=== PATIENT | male | born 1965 | race American Indian/Alaskan Native ===

== ENCOUNTER 2017-09-28 07:52 | Emergency (ER) | payer SELFPAY ==
--- NOTE | 2017-09-28 09:08 | XRay Report ---
ROUTINE CHEST, TWO VIEWS: HISTORY: Chest pain. The trachea, heart, mediastinal contour, lung roberts and bony thorax are unremarkable. IMPRESSION: No acute cardiopulmonary process identified.
[2017-09-28 09:16] LABS: Basophils % (Auto) 0.4 % (0.0-1.8); Eosinophils % (Auto) 0.1 % (0.0-4.3); Hematocrit 50.1 % (35.5-45.6); Hemoglobin 17.1 gm/dl (11.8-15.2); Lymphocytes # (Auto) 0.8 K/mm3 (1.2-5.4); Lymphocytes % (Auto) 17.5 % (13.4-35.0); Mean Corpuscular HGB Conc 34 % (32-34); Mean Corpuscular Hemoglobin 30 pg (28-32); Mean Corpuscular Volume 88 fl (84-94); Monocytes # (Auto) 0.7 K/mm3 (0.0-0.8); Platelet Count 171 K/mm3 (140-440); Red Blood Count 5.67 M/mm3 (3.65-5.03); Red Cell Distribution Width 16.1 % (13.2-15.2)
[2017-09-28 09:52] LABS: Alanine Aminotransferase 19 units/L (7-56); Albumin 3.7 g/dL (3.9-5); BUN/Creatinine Ratio 7; Blood Urea Nitrogen 8 mg/dL (9-20); Hemolysis Index 8
[2017-09-28 09:54] LABS: INR 0.95 (0.87-1.13)
[2017-09-28 09:55] LABS: Partial Thromboplastin Time 32.6 Sec. (24.2-36.6)
[2017-09-28] MEDS ORDERED: NACL 0.9% 1000 ML 1,000 ML IV ONE (10:35)
[2017-09-28] MEDS ORDERED: BENADRYL PO ONE (10:35)
[2017-09-28] MEDS ORDERED: REGLAN IV ONE (10:35)
[2017-09-28] MEDS ORDERED: PROVENTIL IH ONE (10:35)
[2017-09-28] MEDS ORDERED: MOTRIN PO ONE (10:35)
[2017-09-28] MEDS ORDERED: ZITHROMAX PO ONE (10:35)
--- NOTE | 2017-09-28 10:37 | Emergency Department Report ---
- General Chief Complaint: Upper Respiratory Infection Stated Complaint: FLU LIKE SYMPTOMS Time Seen by Provider: 09/28/17 09:56 Source: patient Mode of arrival: Ambulatory Limitations: No Limitations - History of Present Illness Initial Comments: Patient is a 52-year-old -[place] male patient presents with flulike symptoms, BODY aches fevers chills sore throat denies vomiting diarrhea 1 week last by mouth intake this a.m. tolerating liquids without nausea vomiting states generalized fatigue weakness exposed to flu by 2 coworkers symptoms worse at night with lying down patient denies cough productive green-yellow been intermittent shortness of breath patient denies history of asthma or heart disease MD Complaint: fever, cough, sore throat, rhinorrhea, nasal congestion, sinus pain Onset/Timin -: week(s) Severity: moderate Severity scale (0 -10): 5 Quality: aching Consistency: intermittent Improves With: nothing Worsens With: activity Context: sick contacts Associated Symptoms: fever, chills, myalgias, rhinorrhea, nasal congestion, cough, chest pain, shortness of breath, nausea, vomiting, diarrhea, ear pain. denies: rash - Related Data Previous Rx's Medication Instructions Recorded Last Taken Type ALBUTEROL Inhaler [ProAir HFA 2 puff IH QID PRN #1 inhalation 09/28/17 Unknown Rx Inhaler] Azithromycin [Zithromax Z-MARIA ESTHER] 250 mg PO DAILY #4 tablet 09/28/17 Unknown Rx Codeine Phosphate/Guaifenesin 5 ml PO TID PRN #120 ml 09/28/17 Unknown Rx [Guaifenesin-Codeine Syrup] Ibuprofen [Motrin 800 MG tab] 800 mg PO Q8HR PRN #30 tablet 09/28/17 Unknown Rx Allergies Allergy/AdvReac Type Severity Reaction Status Date / Time No Known Allergies Allergy Unverified 09/28/17 08:02 ED Review of Systems ROS: Stated complaint: FLU LIKE SYMPTOMS Other details as noted in HPI Constitutional: chills, fever, malaise, weakness Eyes: denies: eye pain, eye discharge, vision change ENT: ear pain, throat pain, congestion Respiratory: cough, shortness of breath, wheezing. denies: SOB with exertion Cardiovascular: chest pain (with cough). denies: palpitations Endocrine: no symptoms reported Gastrointestinal: nausea, vomiting, diarrhea. denies: abdominal pain, constipation, hematemesis, melena, hematochezia Genitourinary: denies: urgency, dysuria, frequency, hematuria Musculoskeletal: back pain, myalgia. denies: joint swelling, arthralgia Skin: denies: rash, lesions Neurological: weakness. denies: headache, numbness, paresthesias, confusion, abnormal gait, vertigo Psychiatric: denies: anxiety, depression Hematological/Lymphatic: denies: easy bleeding, easy bruising ED Past Medical Hx - Past Medical History Previous Medical History?: No - Surgical History Past Surgical History?: No - Social History Smoking Status: Never Smoker Substance Use Type: Alcohol - Medications Home Medications: Home Medications Medication Instructions Recorded Confirmed Last Taken Type ALBUTEROL Inhaler [ProAir HFA 2 puff IH QID PRN #1 inhalation 09/28/17 Unknown Rx Inhaler] Azithromycin [Zithromax Z-MARIA ESTHER] 250 mg PO DAILY #4 tablet 09/28/17 Unknown Rx Codeine Phosphate/Guaifenesin 5 ml PO TID PRN #120 ml 09/28/17 Unknown Rx [Guaifenesin-Codeine Syrup] Ibuprofen [Motrin 800 MG tab] 800 mg PO Q8HR PRN #30 tablet 09/28/17 Unknown Rx ED Physical Exam - General Limitations: No Limitations General appearance: alert, in no apparent distress - Head Head exam: Present: atraumatic, normocephalic - Eye Eye exam: Present: normal appearance, PERRL, EOMI Pupils: Present: normal accommodation - ENT ENT exam: Present: mucous membranes moist, normal external ear exam. Absent: TM 's normal bilaterally - Expanded ENT Exam Expanded TM/Canal exam: Erythema: Right TM, Left TM, Canal Tenderness: Right TM, Left TM Throat exam: Positive: tonsillar erythema, tonsillomegaly. Negative: tonsillar exudate, R peritonsillar mass, L peritonsillar mass - Neck Neck exam: Present: normal inspection, full ROM. Absent: tenderness, lymphadenopathy, thyromegaly - Respiratory Respiratory exam: Present: normal lung sounds bilaterally, chest wall tenderness (left lateral chest wall reproducible to palpation ). Absent: respiratory distress, wheezes, rhonchi, stridor - Cardiovascular Cardiovascular Exam: Present: regular rate, normal rhythm, normal heart sounds. Absent: systolic murmur, diastolic murmur, rubs, gallop - GI/Abdominal GI/Abdominal exam: Present: soft, normal bowel sounds. Absent: distended, tenderness, guarding, rebound, organomegaly, mass, bruit, pulsatile mass, hernia - Rectal Rectal exam: Present: deferred - Extremities Exam Extremities exam: Present: normal inspection, full ROM, normal capillary refill. Absent: tenderness, pedal edema, joint swelling, calf tenderness - Back Exam Back exam: Present: normal inspection. Absent: full ROM, tenderness, CVA tenderness (R), CVA tenderness (L), muscle spasm, paraspinal tenderness, vertebral tenderness, rash noted - Neurological Exam Neurological exam: Present: alert, oriented X3, normal gait, reflexes normal - Psychiatric Psychiatric exam: Present: normal affect, normal mood - Skin Skin exam: Present: warm, dry, intact, normal color. Absent: rash ED Course Vital Signs 09/28/17 08:02 Temperature 99 F Pulse Rate 108 H Respiratory 22 Rate Blood Pressure 130/88 O2 Sat by Pulse 96 Oximetry ED Medical Decision Making - Lab Data Result diagrams: 09/28/17 08:47 09/28/17 08:47 - Medical Decision Making Patient is a 52-year-old -[place] male patient presents with flulike symptoms, BODY aches fevers chills sore throat denies vomiting diarrhea 1 week last by mouth intake this a.m. tolerating liquids without nausea vomiting states generalized fatigue weakness exposed to flu by 2 coworkers symptoms worse at night with lying down patient denies cough productive green-yellow been intermittent shortness of breath patient denies history of asthma or heart disease patient appears ill and mildly dehydrated exam ENT mild TM erythema mild pain is mild bilateral turbinate erythema body and postnasal drip pharynx moderate erythema no lesions no exudate no swelling no stridor lungs clear at this time bilateral diminished bases bilaterally cough is productive yellow greenish left lateral chest pain palpable reproducible EKG pending noted S1-S2 no MRG abdomen soft nontender no bruit noted. No hernia no CVA tenderness chest x-ray notes a normal troponin less than 0.01 CM P shows mild dehydration normal H&H 15.7 and 50.4 UA pending plan : NS 1 L bolus and Reglan Benadryl ibuprofen, ambulate ED, if symptoms improved will DC to home discussed treatment plan patient patient verbalizes understanding and agreement with tx plan, hear score is 0, ekg nsr NSTEMI, ekg interp by ed attending, trop 0.01, pain improved with nsaids. reassessment: 1145: pt advises symptoms improved pt ambulatetd ed and return to room without increased sob, no wheezing, no n/v is tolerating po intake at this time without n/v, NS 1 liter, ibuprofen, repeat vital signs noted normal plan dc to self with rx. albuterol, zpack, Cheratussin, ibuprofen prn pain and fever , pt will continue to hydrate, follow up with pcp in 2-3 days, Dr. Russell Critical care attestation.: If time is entered above; I have spent that time in minutes in the direct care of this critically ill patient, excluding procedure time. ED Disposition Clinical Impression: Bronchitis URI (upper respiratory infection) Qualifiers: URI type: unspecified viral URI Qualified Code(s): J06.9 - Acute upper respiratory infection, unspecified Disposition: DC-01 TO HOME OR SELFCARE Is pt being admited?: No Does the pt Need Aspirin: No Condition: Good Instructions: Chronic Bronchitis (ED), Upper Respiratory Infection (ED) Prescriptions: ALBUTEROL Inhaler [ProAir HFA Inhaler] 2 puff IH QID PRN #1 inhalation PRN Reason: Shortness Of Breath Azithromycin [Zithromax Z-MARIA ESTHER] 250 mg PO DAILY #4 tablet Codeine Phosphate/Guaifenesin [Guaifenesin-Codeine Syrup] 5 ml PO TID PRN #120 ml PRN Reason: cough Ibuprofen [Motrin 800 MG tab] 800 mg PO Q8HR PRN #30 tablet PRN Reason: pain and fever Referrals: PRIMARY CARE,MD [Primary Care Provider] - 3-5 Days Forms: Work/School Release Form(ED) Time of Disposition: 11:52
[2017-09-28 12:33] VITALS: BP 150/98
== END 2017-09-28 12:34 | disposition home or self-care (01) ==
LOC: ED 07:52
DX: J06.9 Acute upper respiratory infection, unspecified (principal); J40 Bronchitis, not specified as acute or chronic
CPT/HCPCS: 36415; 71046; 80053; 84484; 85025; 85610; 85730; 94640; 96360; 99284; J7030